=== PATIENT | male | born 1980 | race Asian ===

== ENCOUNTER 2024-08-10 09:15 | Outpatient (CLI) | payer SELFPAY ==
--- NOTE | ~2024-08-10 | MMUS_ITS ---
EXAMINATION: MM diagnostic davian LT w mynor, US breast LT limited HISTORY: Nipple discharge TECHNIQUE: Additional 3-D tomosynthesis images of the left breast were performed and synthetic 2-D im ages were generated. CAD analysis was submitted and interpreted. High resolution Limited left breast ultrasound was performed. COMPARISON: None BREAST PARENCHYMAL COMPOSITION: Not Dense: The breasts are almost entirely fatty. FINDINGS: MAMMOGRAPHIC FINDINGS: There are no suspicious masses, calcifications or architectural distortion in the left breast to sugg est malignancy. Comparative right MLO view is unremarkable without suspicious mass. There is benign g ynecomastia. ULTRASOUND: Limited left breast ultrasound: Normal heterogeneous echotexture without focal solid or cystic mass. IMPRESSION: 1. No evidence for malignancy in the left breast. 2. Recommend follow-up clinical management for nipple discharge. BI-RADS Category 1: Negative Reviewed, dictated and finalized at location B. IMPRESSION: 1. No evidence for malignancy in the left breast. 2. Recommend follow-up clinical management for nipple discharge. BI-RADS Category 1: Negative
== END 2024-08-10 09:16 | disposition home or self-care (01) ==
DX: N64.52 Nipple discharge (principal)
CPT/HCPCS: 76642; 77061; 77065; G0279